=== PATIENT | female | born 1985 | race Caucasian/White ===

== ENCOUNTER 2020-01-02 13:46 | Emergency (ER) | payer BC ==
[~2020-01-02] VITALS: Ht 160 cm; Wt 84.4 kg
[2020-01-02 13:54] VITALS: Ht 160 cm; Wt 84.4 kg
== END 2020-01-02 17:07 | disposition home or self-care (01) ==
LOC: ED 13:46
DX: S00.11XA Contusion of right eyelid and periocular area, initial encounter (principal); S00.81XA Abrasion of other part of head, initial encounter; S05.01XA Injury of conjunctiva and corneal abrasion without foreign body, right eye, initial encounter; I10 Essential (primary) hypertension; Z90.89 Acquired absence of other organs; W54.8XXA Other contact with dog, initial encounter; Y93.89 Activity, other specified; Y92.89 Other specified places as the place of occurrence of the external cause; Y99.8 Other external cause status
CPT/HCPCS: 90714